=== PATIENT | male | born 1955 | race Caucasian/White ===

== ENCOUNTER 2020-03-26 16:28 | Emergency (ER) | payer OTHER, SELFPAY ==
[2020-03-26] VITALS (43 sets, daily range): BP systolic 97–158; BP diastolic 36–77; PULSE 68–114; RESP 10–25; TEMP 36.7; O2SAT 91–100
--- NOTE | 2020-03-26 16:30 | DI.CT_ITS ---
EXAM: CT CHEST/ABD/PEL W CLINICAL HISTORY: Trauma TECHNIQUE: Imaging Protocol: Axial computed tomography images with coronal and sagittal reformatted images were created and reviewed CONTRAST MATERIAL: Intravenous: Omnipaque 350 Contrast volume:100 mL Oral: yes / no COMPARISON: No exams were available for comparison FINDINGS: CHEST: Tracheobronchial tree: Patent where visualized. Mediastinum and Dora: No dominant adenopathy or fluid collection. Pulmonary parenchyma: There is a 3 mm nodule in the posterior segment of the right upper lobe. No foc al consolidating infiltrates are seen. Emphysematous changes are seen in the lungs. Pleura: No effusion or pneumothorax. Heart: The heart is not dilated. Mild coronary artery calcification is present. No pericardial effusi on is present. Aorta: Thoracic aorta non-dilated. Atherosclerosis. Lymph nodes: Within normal limits. Bones:Old bilateral rib fractures. Old left clavicular fracture. ABDOMEN: Liver: Normal density. No measurable mass. Portal, Superior Mesenteric, and Splenic Veins: Unremarkable. Gallbladder and Biliary Tract: No radiodense calculus or dilation. Pancreas: Normal density, no abnormal calcifications or inflammatory process. Spleen: Normal. Adrenals: Bilateral adrenal nodules likely reflecting adenomas. Kidneys: Normal size, contour and axis. No radiodense stones or obstructive uropathy. No masses seen. Abdominal Aorta: Abdominal portion non-dilated. Atherosclerosis. Bowel: No obstruction or bowel wall thickening. Appendix is unremarkable. Diverticulosis of the colon but no evidence of acute diverticulitis. Peritoneal Cavity: No ascites, collection or mesenteric inflammatory response. Lymph Nodes: Within normal limits. Bones: Unremarkable. Soft Tissues: Bilateral fat containing inguinal hernias. PELVIS: Bladder: Symmetric distention, no gross wall thickening. Reproductive Organs: Unremarkable as visualized. Lymph Nodes: Within normal limits. Bones: Within normal limits. IMPRESSION: 1. No acute abdominal or pelvic process. 2. No acute pulmonary process. 3. 3 mm nodule in the posterior segment of the right upper lobe. For patients at low risk, no routine follow-up is indicated. For patients at high risk consider CT scan of the chest at 12 months. RADIATION DOSE DELIVERED: 2,035.01mGy.cm Total DLP DATA REPOSITORY: All CT scans at this facility are submitted to the National Radiology Data Registry (NRDR) Dose Index Registry (DIR) with the [employer] (A[employer]). RADIATION OPTIMIZATION: All CT scans at this facility use at least one of these dose optimization te chniques: automated exposure control; mA and/or kV adjustment per patient size (includes targeted exa ms where dose is matched to clinical indication); or iterative reconstruction.
--- NOTE | 2020-03-26 16:30 | DI.RAD_ITS ---
EXAM: XR SHOULDER RT COMPLETE 2+V CLINICAL HISTORY: Trauma, pain. TECHNIQUE: 2D digital imaging was performed. COMPARISON: No exams were available for comparison FINDINGS: The initial Y-view at 1835 hours shows no dislocation. A subsequent Y-view at 18:45 shows an anterio r dislocation of the glenohumeral joint. Degenerative changes are seen at the acromioclavicular join t. Bones are normally mineralized. The soft tissues are unremarkable. IMPRESSION: 1. No acute fracture. 2. The last Y-views of the shoulder show an anterior dislocation of the glenohumeral joint. DATA REPOSITORY: RADIATION DOSE DELIVERED:
--- NOTE | 2020-03-26 16:37 | DI.CT_ITS ---
EXAM: CT HEAD CERV SPINE FACIAL WO CLINICAL HISTORY: Trauma. TECHNIQUE: Imaging Protocol: Axial computed tomography images with coronal and sagittal reformatted images were created and reviewed COMPARISON: No exams were available for comparison FINDINGS: CT Head: Ventricles and Extra axial spaces: Normal in size and morphology for the patient's age. Hemorrhage: None. Cerebral parenchyma: Normal. Midline shift: None. Brainstem/Cerebellum: Normal. Calvarium: Normal. Visualized Paranasal sinuses/Mastoids: Complete opacification the left frontal sinus. Mucosal thicke silvano in the ethmoid air cells and maxillary sinuses bilaterally. The mastoid air cells are well pneu matized. Soft Tissues: Unremarkable. CT Face: Facial Bones: There is a mildly depressed nasal bone fracture. There is a fracture of the left stylo id process which appears old. Sinuses and Mastoids: There is sinus disease involving the left frontal sinus, the ethmoid air cells and maxillary sinuses bilaterally. Globes, extraocular muscles, optic nerves and retrobulbar fat: Normal. Upper aerodigestive tract: Normal. Mandible and bilateral temporomandibular joints: Normal. Soft tissues: Normal. CT Cervical Spine: Bones: No acute fracture or subluxation. Moderately severe degenerative changes are present throughou t the cervical spine. There is straightening of the normal lordosis which may be due to patient posi tioning or muscle spasm. Soft Tissues: Unremarkable. Lung Apices: Clear. IMPRESSION: 1. No acute intracranial process. 2. Sinusitis. 3. No acute fracture or subluxation in the cervical spine. 4. Nasal bone fracture. RADIATION DOSE DELIVERED: 2,961.49mGy.cm DATA REPOSITORY: All CT scans at this facility are submitted to the National Radiology Data Registry (NRDR) Dose Index Registry (DIR) with the [employer] (ACR). RADIATION OPTIMIZATION: All CT scans at this facility use at least one of these dose optimization te chniques: automated exposure control; mA and/or kV adjustment per patient size (includes targeted exa ms where dose is matched to clinical indication); or iterative reconstruction.
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
[2020-03-26] MEDS: HYDROmorphone 2 MG/ML VIAL 1 MG IVP (16:48)
[2020-03-26] MEDS: Normal Saline Flush 10 ML SYR IVP ×3 (16:53→17:50)
[2020-03-26 16:54] LABS: Abs Immature Grans 0.05 k/cumm (0.0-0.09); Absolute Eosinophil Count 0.15 k/cumm (0.0-0.7); Absolute Monocyte Count 0.77 k/cumm (0.11-0.7); Basophils % 0.2; Eosinophils % 1.2; HCT 44.1 % (40.0-50.0); HGB 14.9 g/dL (13.5-17.5); Immature Grans % 0.4 %; Lymphocytes % 23.7; Mean Corp. HGB Concentration 33.8 g/dL (32.0-36.0); Mean Corpuscular Hemoglobin 30.6 pg (27.0-33.0); Mean Corpuscular Volume 90.6 fL (80-95); Mean Platelet Volume 10.1 fL (8.0-11.0); Monocytes % 6.2; Neutrophils % 68.3; Platelet Count 210 x1000/uL (130-400); RBC 4.87 m/cumm (4.50-6.00); RBC Distribution Width 14.1 % (11.8-14.1); White Blood Cell Count 12.38 k/cumm (4.4-10.8)
[2020-03-26 16:55] LABS: Absolute Basophil Count 0.02 k/cumm (0.0-0.2); Absolute Lymphocyte Count 2.93 k/cumm (1.2-3.4); Absolute Neutrophil Count 8.46 k/cumm (1.2-6.7)
[2020-03-26 17:01] LABS: Prothrombin Time 9.6 sec (9.3-11.0)
[2020-03-26 17:06] LABS: ALT 35 U/L (16-63); AST 27 U/L (15-37); Albumin 3.8 g/dL (3.4-5.0); Alkaline Phosphatase 64 U/L (46-116); Anion Gap 12.2 mmol/L (3-11); BUN 11 mg/dL (7-18); CO2 20.8 mmol/L (21.0-32.0); CREATININE 0.89 mg/dL (0.70-1.30); Calcium 8.3 mg/dL (8.5-10.1); Chloride 105 mmol/L (98-107); Glucose 136 mg/dL (74-106); Potassium 3.6 mmol/L (3.5-5.1); Sodium 138 mmol/L (136-145)
[2020-03-26] MEDS: Omnipaque 350 MG/ML 100 ML BTL IJ (17:10)
[2020-03-26] MEDS: Normal Saline - Diluent 50 ML VIAL IV (17:11)
[2020-03-26 17:17] LABS: ETHANOL BLOOD < 3.0 mg/dL (<3)
--- NOTE | 2020-03-26 17:34 | DI.RAD_ITS ---
EXAM: XR CLAVICLE RT CLINICAL HISTORY: Trauma, pain TECHNIQUE: 2D digital imaging was performed. COMPARISON: No exams were available for comparison FINDINGS: There is an anterior dislocation of the glenohumeral joint. Well corticated osseous fragments are se en at the acromioclavicular joint which appear old. No acute fracture is seen. No AC joint dislocat ion is present. IMPRESSION: Anterior dislocation of the right glenohumeral joint. DATA REPOSITORY: RADIATION DOSE DELIVERED:
[2020-03-26] MEDS: HYDROmorphone 2 MG/ML VIAL 0.5 MG IVP (17:49)
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
[2020-03-26] MEDS: Propofol 200 MG/20 ML VIAL 113 MG IVP (18:45)
--- NOTE | 2020-03-26 18:45 | DI.RAD_ITS ---
EXAM: XR SHOULDER RT COMP POST REDUC CLINICAL HISTORY: post reduction. TECHNIQUE: 2D digital imaging was performed. COMPARISON: CR,XR XR SHOULDER RT COMPLETE 2+V from 03/26/2020 FINDINGS: There has been successful reduction of the glenohumeral joint dislocation. Alignment appears anatomi c. No definite acute fracture or dislocation is seen. If there is continued concern a CT scan shoul d be considered. Chronic changes are seen at the acromioclavicular joint. The soft tissues are unre markable. IMPRESSION: Successful reduction of the right shoulder dislocation. DATA REPOSITORY: RADIATION DOSE DELIVERED:
--- NOTE | 2020-03-26 18:45 | DI.RAD_ITS ---
EXAM: XR ELBOW RT LIMITED CLINICAL HISTORY: R/O fracture. TECHNIQUE: 2D digital imaging was performed. COMPARISON: No exams were available for comparison FINDINGS: Study is suboptimal due to patient positioning. No definite fracture or dislocation is seen. Joint effusion cannot be evaluated due to the lack of a true lateral view. IMPRESSION: 1. Limited examination due to malpositioning. 2. No definite acute fracture or dislocation within the limits of the examination. If there is criselda nued concern, please repeat the examination with better positioning. DATA REPOSITORY: RADIATION DOSE DELIVERED:
[2020-03-26] MEDS: traMADol 50 MG TAB PO (19:54)
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
[2020-03-26] MEDS: Cephalexin 500 MG CAP, 4 CAPS/BTL PO (21:18)
[2020-03-26] MEDS: Cephalexin 500 MG CAP PO (21:18)
== END 2020-03-26 21:06 | disposition home or self-care (01) ==
PROVIDERS: Emergency Provider Registered Nurse Emergency
DX: S42.291A Other displaced fracture of upper end of right humerus, initial encounter for closed fracture (principal); S02.2XXA Fracture of nasal bones, initial encounter for closed fracture; S43.011A Anterior subluxation of right humerus, initial encounter; S51.011A Laceration without foreign body of right elbow, initial encounter; S80.211A Abrasion, right knee, initial encounter; S30.811A Abrasion of abdominal wall, initial encounter; S40.811A Abrasion of right upper arm, initial encounter; S40.812A Abrasion of left upper arm, initial encounter; V20.4XXA Motorcycle driver injured in collision with pedestrian or animal in traffic accident, initial encounter; J44.9 Chronic obstructive pulmonary disease, unspecified; F17.200 Nicotine dependence, unspecified, uncomplicated; R91.1 Solitary pulmonary nodule
CPT/HCPCS: 12002; 23650; 36415; 73030; 74177; 80053; 86850; 86900; 86901; 96374; 96375; 96376; 99291; 70450; 70486; 71260; 72125; 73000; 73070; 80320; 81003; 85025; 85610; J2704; J3490